=== PATIENT | female | born 1935 | race Hispanic/Latino ===

== ENCOUNTER 2020-02-26 02:31 | Emergency (ER) | payer MEDICARE, OTHER ==
[2020-02-26] MEDS ORDERED: LIDOCAINE 5% TOPICAL PATCH TP ONE (04:34)
== END 2020-02-26 05:05 | disposition home or self-care (01) ==
LOC: EDH 02:31
DX: S86.911A Strain of unspecified muscle(s) and tendon(s) at lower leg level, right leg, initial encounter (principal); W18.39XA Other fall on same level, initial encounter; Y93.89 Activity, other specified; Y92.89 Other specified places as the place of occurrence of the external cause; Y99.8 Other external cause status; I10 Essential (primary) hypertension; E78.00 Pure hypercholesterolemia, unspecified